=== PATIENT | male | born 1990 | race Caucasian/White ===

== ENCOUNTER 2016-11-14 23:28 | Emergency (ER) | payer MEDICAID ==
[~2016-11-14] VITALS: Ht 172.7 cm; Wt 81.6 kg
[~2016-11-14 23:28] MED LIST: COLACE100 M1 PO; NORCO 5/325 MG1 TAB PO; TYLENOL32 MG/ML PO; [UNRECOGNIZED DRUG - OTHER] PO
[2016-11-14 23:33] VITALS: BP 117/74
--- NOTE | 2016-11-14 23:53 | NUR ---
TO ER BED 4
--- NOTE | 2016-11-15 00:01 | NUR ---
26 Y/O M W/C/O CHEST PAIN STARTED AT 1300HOURS, WHILE WORKING. NO S/S OF DISTRESS NOTED AT THE MOMENT. PER PT PAIN ONLY PRESENT WHEN HE TRIES TO TAKE A DEEP BREATH.
--- NOTE | 2016-11-15 00:52 | NUR ---
PT RESTING IN BED NO S/S OF DISTRESS NOTED AT THIS TIME.
[2016-11-15 01:50] VITALS: BP 117/83
--- NOTE | 2016-11-15 01:50 | NUR ---
PER DR STARK FOR PT TO COME BACK TOMORROW FOR FLU AND PER PT THE HE WILL PROVIDE A URINE SAMPLE.
--- NOTE | 2016-11-15 01:50 | NUR ---
Patient discharged with v/s stable. Written and verbal after care instructions given and explained. Patient alert, oriented and verbalized understanding of instructions. Ambulatory with steady gait. All questions addressed prior to discharge. ID band removed. Patient advised to follow up with PMD IN 2 DAYS OR RETURN TO ER IF CONDITION WORSENS. Rx of MOTRIN given. Patient educated on indication of medication including possible reaction and side effects. Opportunity to ask questions provided and answered.
--- NOTE | 2016-11-15 01:57 | NUR ---
Note enriqueone in EDM - 11/15/16 at 0210 by KAMI Patient discharged with v/s stable. Written and verbal after care instructions given and explained. Patient alert, oriented and verbalized understanding of instructions. Ambulatory with steady gait. All questions addressed prior to discharge. ID band removed. Patient advised to follow up with PMD IN 2 DAYS OR RETURN TO ER IF CONDITION WORSENS. Rx of MOTRIN, KEFLEX, BACTRIM, AND NORCO given. Patient educated on indication of medication including possible reaction and side effects. Opportunity to ask questions provided and answered.
== END 2016-11-15 01:50 | disposition home or self-care (01) ==
LOC: MED 23:28
DX: R07.89 Other chest pain (principal); R20.0 Anesthesia of skin
CPT/HCPCS: 36415; 71010; 80053; 83690; 84484; 85025; 93005; 99285; Q0092

== ENCOUNTER 2017-01-05 09:32 | Emergency (ER) | payer MEDICAID ==
[~2017-01-05] VITALS: Ht 170.2 cm; Wt 79.4 kg
[2017-01-05 09:48] VITALS: BP 146/96
--- NOTE | 2017-01-05 10:34 | NUR ---
Patient ambulated to bed 5 with family. FAMILY MEDICINE CHAIR evaluating patient at bedside.
--- NOTE | 2017-01-05 10:37 | NUR ---
26/M C/O ITCHINESS AND REDNESS TO PENIS. PT STATES HE HAD SEX WITHOUT A CONDOM APPROXIMATELY A WEEK AGO. DENIES PAIN. DENIES DISHARGE. PT C/O ITCHINESS, AND RED BUMPS TO PENIS. DENIES FEVER OR CHILLS. DENIES N/V/D. DENIES ANY PAINFUL URINATION OR BURNING WITH URINATION. AOX4, AMBULATORY WITH STEADY GAIT. VSS.
--- NOTE | 2017-01-05 10:45 | NUR ---
Patient being evaluated by Dr. Juarez at bedside.
[2017-01-05] MEDS ORDERED: cefTRIAXone 250 MG in LIDOCAINE 1% ED 0.9 ML IM ONE (10:55)
[2017-01-05 11:44] VITALS: BP 127/74
--- NOTE | 2017-01-05 11:44 | NUR ---
Stan perez in EDM - 01/05/17 at 1148 by [facility] Patient discharged with v/s stable. Written and verbal after care instructions given and explained. Patient verbalized understanding. Wheel Chair Assisted with to car. All questions addressed prior to discharge. Advised to follow up with PMD.
--- NOTE | 2017-01-05 11:44 | NUR ---
Patient discharged with v/s stable. Written and verbal after care instructions given and explained. Patient alert, oriented and verbalized understanding of instructions. Ambulatory with steady gait. All questions addressed prior to discharge. ID band removed. Patient advised to follow up with PMD. Rx of FLUCONAZOLE,AZITHROMYCIN & NYSTATIN given. Patient educated on indication of medication including possible reaction and side effects. Opportunity to ask questions provided and answered.
== END 2017-01-05 11:44 | disposition home or self-care (01) ==
LOC: MED 09:32
DX: A64 Unspecified sexually transmitted disease (principal); B35.6 Tinea cruris; J45.909 Unspecified asthma, uncomplicated; F17.210 Nicotine dependence, cigarettes, uncomplicated; Z90.49 Acquired absence of other specified parts of digestive tract; Z71.6 Tobacco abuse counseling
CPT/HCPCS: 36415; 81003; 86592; 86702; 87491; 99284; J0696; J2001